=== PATIENT | female | born 1985 | race Hispanic/Latino ===

== ENCOUNTER 2021-01-15 12:28 | Emergency (ER) | payer BC ==
[2021-01-15 14:24] LABS: Urine Blood Negative (Negative); Urine Glucose Negative (Negative); Urine Protein Negative (Negative); Urine Specific Gravity 1.015 (1.005-1.030); Urine pH 7.5 (5.0-7.0)
--- NOTE | 2021-01-15 15:18 | RAD REPORT ---
EXAM DESCRIPTION: CT - Chest For Pe Angio - 01/15/2021 3:08 pm CLINICAL HISTORY: Chest pain COMPARISON: None. TECHNIQUE: Dynamically enhanced axial 3 mm thick images of the chest were obtained during administra tion of <100> mL Isovue 370 IV contrast. Coronal and oblique reconstruction images were generated and reviewed. Exam utilizes a protocol for optimal evaluation of pulmonary arterial tree. Maximum intensity projections 3D imaging was utilized All CT scans are performed using dose optimization technique as appropriate and may include automated exposure control or mA/KV adjustment according to patient size. FINDINGS: A pulmonary embolus is not seen. A thoracic aortic aneurysm is not noted. A pleural effusion is not seen. A pericardial effusion is not seen. A lung consolidation is not present. Bilateral breast implants IMPRESSION: Negative for a pulmonary embolism.
[2021-01-15 16:34] LABS: Absolute Lymphocytes (CBC) 2.4 K/uL (0.7-4.9); Basophils % 1.1 % (0-1.3); Hematocrit 41.7 % (36.0-45.0); Lymphocytes % 32.7 % (15.3-44.8); MPV 8.4 fL (7.6-11.3)
[2021-01-15] MEDS ORDERED: DIAZEPAM 10 MG/2 ML INJ SYRINGE ONE (16:47)
[2021-01-15 16:51] LABS: Potassium 4.4 mmol/L (3.5-5.1)
--- NOTE | 2021-01-15 17:30 | EDPHYS ---
Physician Documentation [facility] Name: Jenae Flores Age: 35 yrs Sex: Female : 1985 Arrival Date: 01/15/2021 Time: 12:31 Bed 26 Private MD: Randolph Price HPI: 01/15 14:14 This 35 yrs old Female presents to ER via Ambulatory with complaints of Chest jmm Muscle Pain-Inplant Issue. 14:14 The patient or guardian reports chest pain that is located primarily in the right jmm breast. Associated signs and symptoms: Pertinent positives: syncope. The chest pain is described as sharp. 35-year-old female with a history of hypothyroidism presents emerged part with complaints of right breast pain symptoms initially began approximately 3 months after a June 2019 breast augmentation. Symptoms have been ongoing. Patient states she always feels her right breast. Last night she developed what felt like a charley horse to her right breast the pain was so intense that she states she vomited and had a syncopal episode.. 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 - Social history:: Smoking status: Patient denies any tobacco usage or history of. ROS: 14:14 Constitutional: Negative for fever, chills, and weight loss, Cardiovascular: Negative jmm for chest pain, palpitations, and edema, Respiratory: Negative for shortness of breath, cough, wheezing, and pleuritic chest pain. 14:14 Cardiovascular: Positive for chest pain. 14:14 All other systems are negative. Exam: 14:14 Constitutional: This is a well developed, well nourished patient who is awake, alert, jmm and in no acute distress. Head/Face: atraumatic. Eyes: EOMI, no conjunctival erythema appreciated ENT: Moist Mucus Membranes Neck: Trachea midline, Supple 14:14 Cardiovascular: Regular rate and rhythm. No edema appreciated Respiratory: Normal respirations, no respiratory distress appreciated Abdomen/GI: Non distended, soft Back: Normal ROM Skin: General appearance color normal MS/ Extremity: Moves all extremities, no obvious deformities appreciated, no edema noted to the lower extremities Neuro: Awake and alert, normal gait Psych: Behavior is normal, Mood is normal, Patient is cooperative and pleasant 14:14 Chest/axilla: Breasts: tenderness, that is moderate, of the right breast. Vital Signs: 13:22 BP 107 / 66; Pulse 82; Resp 20; Temp 98.2; Pulse Ox 100% ; Weight 69.94 kg; Height 5 kg ft. 1 in. (154.94 cm); Pain 9/10; 16:30 BP 112 / 77; Pulse 64; Resp 15; Pulse Ox 99% ; bp 13:22 Body Mass Index 29.14 (69.94 kg, 154.94 cm) kg MDM: 14:30 Patient medically screened. emiliana 17:22 Data reviewed: vital signs, nurses notes. Counseling: I had a detailed discussion with alessandro the patient and/or guardian regarding: the historical points, exam findings, and any diagnostic results supporting the discharge/admit diagnosis, the need for outpatient follow up, to return to the emergency department if symptoms worsen or persist or if there are any questions or concerns that arise at home. 17:26 ED course: Patient is alert nontoxic in appearance in the ED. Patient symptoms are [facility] alleviated with IV evaluation. Patient is advised to follow-up with her plastics. Patient is otherwise given strict return precautions. Patient understood and agrees with plan of care.. 17:29 ED course: NARX SCORE = 270. [facility] 01/15 14:24 Order name: Urine Dipstick-Ancillary [facility] 01/15 14:26 Order name: Urine --Ancillary (enter results) 01/15 15:41 Order name: CBC with Diff; Complete Time: 17:11 [facility] 01/15 15:41 Order name: BMP; Complete Time: 17:11 [facility] 01/15 14:13 Order name: CT Chest For PE Angio; Complete Time: 15:20 [facility] 01/15 15:41 Order name: EKG - Nurse/Tech; Complete Time: 16:34 [facility] Administered Medications: 16:15 Drug: Valium (diazepam) 5 mg Route: IVP; Site: right antecubital; bp 16:59 Follow up: Response: Anxiety decreased bp Disposition: 01/16 07:00 Co-signature as Attending Physician, Randolph Rodriguez MD I agree with the assessment and emiliana plan of care. Disposition Summary: 01/15/21 17:29 Discharge Ordered Location: Home jmm Condition: Stable jmm Diagnosis - Other muscle spasm jmm Followup: jmm - With: Private Physician - When: 2 - 3 days - Reason: Recheck today's complaints, Continuance of care, Re-evaluation by your physician Discharge Instructions: - Discharge Summary Sheet jmm - Spasticity jmm Forms: - Medication Reconciliation Form jmm - Thank You Letter jmm - Antibiotic Education jmm - Prescription Opioid Use jmm - Work release form eb Prescriptions: - Valium 5 mg Oral Tablet - take 1 tablet by ORAL route every 8 hours As needed; 20 tablet; Refills: 0, jmm Product Selection Permitted Signatures: Dispatcher [employer] EDRandolph Agustin MD MD cha Mickail, Joel, PA PA Nate Mann, RN RN Jesusita Dumont, PARAMJIT RN kg Corrections: (The following items were deleted from the chart) 01/15 13:30 13:27 Allergies: Aspirin; kg kg 13:30 13:27 PSHx: Operative procedure on knee; kg kg 14:19 14:12 Thorax W/ Con+CT.RAD.BRZ ordered. EDCT EDMS
--- NOTE | 2021-01-15 17:30 | ER ---
Nurse's Notes [facility] Name: Jenae Flores Age: 35 yrs Sex: Female : 1985 Arrival Date: 01/15/2021 Time: 12:31 Bed 26 Private MD: Diagnosis: Other muscle spasm Presentation: 01/15 13:22 Chief complaint: Patient states: Pt stated that she was woken up in the middle of the kg night with pain to the right breast. She states she has breast implants under the muscle in 06/26/2019 and has had problems with the right breast every since. Pt denies picking up anything or doing anything to cause the pain. She stated the pain was so bad she passed out. No obvious bruising or swelling noted. Coronavirus screen: Client denies travel out of the [place] in the last 14 days. At this time, unable to obtain information related to travel outside the [place] At this time, the client does not indicate any symptoms associated with coronavirus-19. Ebola Screen: Patient negative for fever greater than or equal to 101.5 degrees Fahrenheit, and additional compatible Ebola Virus Disease symptoms Patient denies exposure to infectious person. Patient denies travel to an Ebola-affected area in the 21 days before illness onset. Initial Sepsis Screen: Does the patient meet any 2 criteria? No. Patient's initial sepsis screen is negative. Does the patient have a suspected source of infection? No. Patient's initial sepsis screen is negative. Risk Assessment: Do you want to hurt yourself or someone else? Patient reports no desire to harm self or others. Onset of symptoms was January 14, 2021. 13:22 Method Of Arrival: Ambulatory kg 13:22 Acuity: ALONSO 4 kg Triage Assessment: 13:27 General: Appears in no apparent distress. Behavior is calm, cooperative, appropriate kg for age, quiet. Pain: Complains of pain in right breast Pain does not radiate. Pain currently is 9 out of 10 on a pain scale. at worst was 10 out of 10 on a pain scale. level that patient reports is acceptable is 5 out of 10 on a pain scale. Quality of pain is described as "tearing" "It feels like I tore something from the inside of my boob". 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 - Social history:: Smoking status: Patient denies any tobacco usage or history of. Screenin:33 Abuse screen: Denies threats or abuse. Denies injuries from another. Nutritional kg screening: No deficits noted. Tuberculosis screening: No symptoms or risk factors identified. Fall Risk None identified. Assessment: 13:30 General: SEE TRIAGE NOTE. bp 14:30 Reassessment: No changes from previously documented assessment. Patient and/or family bp updated on plan of care and expected duration. Pain level reassessed. PT TO CT. 16:00 Reassessment: No changes from previously documented assessment. Patient and/or family bp updated on plan of care and expected duration. Pain level reassessed. 17:43 Reassessment: PT D/C HOME AMBULATORY, DX WITH MUSCLE SPASM. bp Vital Signs: 13:22 BP 107 / 66; Pulse 82; Resp 20; Temp 98.2; Pulse Ox 100% ; Weight 69.94 kg; Height 5 kg ft. 1 in. (154.94 cm); Pain 9/10; 16:30 BP 112 / 77; Pulse 64; Resp 15; Pulse Ox 99% ; bp 13:22 Body Mass Index 29.14 (69.94 kg, 154.94 cm) kg ED Course: 12:31 Patient arrived in ED. ds1 13:27 Triage completed. kg 13:27 Arm band placed on left wrist. kg 13:33 Patient has correct armband on for positive identification. kg 14:13 Tucker Miller PA is PHCP. jmm 14:13 Randolph Rodriguez MD is Attending Physician. jmm 14:20 Nate Araujo, PARAMJIT is Primary Nurse. bp 14:56 Inserted saline lock: 20 gauge in left forearm, using aseptic technique. bp 15:08 CT Chest For PE Angio In Process Unspecified. EDMS 16:00 No provider procedures requiring assistance completed. IV discontinued, intact, bp bleeding controlled, No redness/swelling at site. Pressure dressing applied. 16:34 Urine --Ancillary (enter results) Sent. bp Administered Medications: 16:15 Drug: Valium (diazepam) 5 mg Route: IVP; Site: right antecubital; bp 16:59 Follow up: Response: Anxiety decreased bp Outcome: 16:00 Discharged to home bp 16:00 Condition: stable 16:00 Discharge instructions given to patient, Instructed on discharge instructions, follow up and referral plans. medication usage, Demonstrated understanding of instructions, follow-up care, medications, Prescriptions given X 1. 17:29 Discharge ordered by MD. francois 17:52 Patient left the ED. iw Signatures: Dispatcher [employer] EDMS Tucker Miller PA PA jmm Sanford, Demi ds1 Veronique Wilson, PARAMJIT RN iw Nate Araujo RN RN bp Graham, Kristen, PARAMJIT YUSUF kg Corrections: (The following items were deleted from the chart) 13:30 13:27 Allergies: Aspirin; kg kg 13:30 13:27 PSHx: Operative procedure on knee; kg kg
[2021-01-15 18:01] VITALS: TEMP 98.2
[2021-01-15 18:03] VITALS: BP 112/77; O2SAT 99
--- NOTE | 2021-01-18 12:42 | EKG ---
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
== END 2021-01-15 17:52 | disposition home or self-care (01) ==
LOC: ER 12:28
DX: M62.838 Other muscle spasm (principal); E03.9 Hypothyroidism, unspecified; Z98.82 Breast implant status; Z88.5 Allergy status to narcotic agent
CPT/HCPCS: 93005; 85025; 80048; 36415; 81003; 71275; 96374; 99284; Q9967; J3360

== ENCOUNTER 2021-11-25 16:50 | Emergency (ER) | payer BC ==
--- NOTE | 2021-11-25 17:40 | RAD REPORT ---
EXAM DESCRIPTION: CT - CTFB CLINICAL HISTORY: Facial trauma, blunt COMPARISON: No comparisons TECHNIQUE: Axial 2 mm thick images of the face were obtained with sagittal and coronal reconstructio n images. All CT scans are performed using dose optimization technique as appropriate and may include automated exposure control or mA/KV adjustment according to patient size. FINDINGS: No acute facial bone fracture is seen.The mandible is intact. The globes and orbital contents are grossly unremarkable.The paranasal sinuses and mastoids are clear . IMPRESSION: Negative for facial bone fracture.
--- NOTE | 2021-11-25 17:45 | EDPHYS ---
Physician Documentation [facility] Name: Jenae Flores Age: 35 yrs Sex: Female : 1985 Arrival Date: 11/25/2021 Time: 16:53 Bed Waiting Private MD: ED Physician Randolph Rodriguez HPI: 11/25 17:04 This 35 yrs old Female presents to ER via Unassigned with complaints of Facial jmm Injury, Facial Swelling. 17:04 The patient or guardian reports injury, pain. Onset: The symptoms/episode jmm began/occurred acutely, just prior to arrival. Associated signs and symptoms: Loss of consciousness: This patient did not experience any loss of consciousness. This is a 35 year old female with no chronic meidcal conditions that presents to the ED with ocmplaints of right sided jaw pain. Patient states she was hit by a boogie board on the left side and now has pain at the right TMJ. Pain is elicited on biting. Denies LOC, vomiting, neck pain. . 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 - Social history:: Smoking status: Patient denies any tobacco usage or history of. ROS: 17:04 Constitutional: Negative for fever, chills, and weight loss. jmm 17:04 ENT: Positive for jaw pain. 17:04 All other systems are negative. Exam: 17:04 Constitutional: This is a well developed, well nourished patient who is awake, alert, jmm and in no acute distress. Head/Face: atraumatic. Eyes: EOMI, no conjunctival erythema appreciated 17:04 Neck: Trachea midline, Supple Chest/axilla: Normal chest wall appearance and motion. Cardiovascular: Regular rate and rhythm. No edema appreciated Respiratory: Normal respirations, no respiratory distress appreciated Abdomen/GI: Non distended, soft Back: Normal ROM Skin: General appearance color normal MS/ Extremity: Moves all extremities, no obvious deformities appreciated, no edema noted to the lower extremities Neuro: Awake and alert Psych: Behavior is normal, Mood is normal, Patient is cooperative and pleasant 17:04 ENT: mild right tmj pain on palpation. no obvioius deformity. . Vital Signs: 17:41 BP 134 / 85; Pulse 66; Resp 16; Temp 98.1(TE); Pulse Ox 100% ; Weight 68.95 kg; Height vg1 5 ft. 1 in. (154.94 cm); Pain 6/10; 17:41 Body Mass Index 28.72 (68.95 kg, 154.94 cm) vg1 MDM: 17:04 Patient medically screened. [facility] 17:44 Data reviewed: vital signs, nurses notes. Counseling: I had a detailed discussion with [facility] the patient and/or guardian regarding: the historical points, exam findings, and any diagnostic results supporting the discharge/admit diagnosis, radiology results, the need for outpatient follow up, to return to the emergency department if symptoms worsen or persist or if there are any questions or concerns that arise at home. [id number] 17:04 Order name: CT Facial Bones W/O Con; Complete Time: 17:41 [facility] Administered Medications: No medications were administered Disposition Summary: 11/25/21 17:45 Discharge Ordered Location: Home [facility] Condition: Stable [facility] Diagnosis - Sprain of jaw, right side, initial encounter [facility] Followup: [facility] - With: Jumana Zavala MD - When: 2 - 3 days - Reason: Recheck today's complaints, Continuance of care, Re-evaluation by your physician Followup: [facility] - With: Josafat Torres DDS - When: 2 - 3 days - Reason: Recheck today's complaints, Continuance of care, Re-evaluation by your physician Discharge Instructions: - Discharge Summary Sheet [facility] - Jaw Contusion [facility] - Jaw Range of Motion Exercises [facility] Forms: - Medication Reconciliation Form [facility] - Thank You Letter [facility] - Antibiotic Education [facility] - Prescription Opioid Use [facility] Prescriptions: - Diclofenac Sodium 75 mg Oral Tablet Sustained Release - take 1 tablet by ORAL route 2 times per day; 30 tablet; Refills: 0, Product [facility] Selection Permitted - Valium 5 mg Oral Tablet - take 1 tablet by ORAL route every 8 hours As needed; 20 tablet; Refills: 0, [facility] Product Selection Permitted Signatures: Dispatcher [employer] Tucker Osorio PA PA jmm Garcia, Victoria, RN RN vg1 Corrections: (The following items were deleted from the chart) 17:47 17:45 Home Meds: Synthroid 75 mcg Oral tab; vg1 vg1
--- NOTE | 2021-11-25 17:51 | ER ---
Nurse's Notes [facility] Name: Jenae Flores Age: 35 yrs Sex: Female : 1985 Arrival Date: 11/25/2021 Time: 16:53 Bed Waiting Private MD: Diagnosis: Sprain of jaw, right side, initial encounter Presentation: 11/25 17:41 Chief complaint: Patient states: Pt was hit on the Left side of the jaw with a boogie vg1 board but states Right side of jaw pain and right ear pain. Denies headache, dizziness, blurred vision, or NV. Coronavirus screen: Vaccine status: Patient reports being unvaccinated. Client denies travel out of the [place] in the last 14 days. Ebola Screen: Patient denies exposure to infectious person. Patient denies travel to an Ebola-affected area in the 21 days before illness onset. Initial Sepsis Screen: Does the patient meet any 2 criteria? No. Patient's initial sepsis screen is negative. Does the patient have a suspected source of infection? No. Patient's initial sepsis screen is negative. Risk Assessment: Do you want to hurt yourself or someone else? Patient reports no desire to harm self or others. Onset of symptoms was November 25, 2021. 17:41 Method Of Arrival: Ambulatory vg1 17:41 Acuity: ALONSO 4 vg1 Triage Assessment: 17:45 General: Appears uncomfortable, Behavior is calm, cooperative. Pain: Complains of pain vg1 in Right side of jaw and right side of ear Pain currently is 6 out of 10 on a pain scale. 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 - Social history:: Smoking status: Patient denies any tobacco usage or history of. Screenin:49 Abuse screen: Denies threats or abuse. Nutritional screening: No deficits noted. vg1 Tuberculosis screening: No symptoms or risk factors identified. Fall Risk None identified. Vital Signs: 17:41 BP 134 / 85; Pulse 66; Resp 16; Temp 98.1(TE); Pulse Ox 100% ; Weight 68.95 kg; Height vg1 5 ft. 1 in. (154.94 cm); Pain 6/10; 17:41 Body Mass Index 28.72 (68.95 kg, 154.94 cm) vg1 ED Course: 16:53 Patient arrived in ED. jj6 17:01 Tucker Miller PA is PHCP. [facility] 17:01 Randolph Rodriguez MD is Attending Physician. [facility] 17:25 CT Facial Bones W/O Con In Process Unspecified. EDAK 17:44 Jumana Zavala MD is Referral Physician. jm 17:44 Josafat Torres DDS is Referral Physician. [facility] 17:45 Triage completed. vg1 17:45 Arm band placed on. vg1 17:49 Patient has correct armband on for positive identification. vg1 17:49 No provider procedures requiring assistance completed. Patient did not have IV access vg1 during this emergency room visit. Administered Medications: No medications were administered Medication: 17:50 VIS not applicable for this client. vg1 Outcome: 17:45 Discharge ordered by MD. [facility] 17:49 Discharged to home ambulatory. vg1 17:49 Condition: good 17:49 Discharge instructions given to patient, Instructed on discharge instructions, follow up and referral plans. medication usage, Demonstrated understanding of instructions, follow-up care, medications, Prescriptions given X 2. 17:51 Patient left the ED. vg1 Signatures: Dispatcher [employer] [facility] Tucker Miller PA PA jmm Garcia, Victoria, RN RN vg1 Ev Rascon [email or web address] Corrections: (The following items were deleted from the chart) 17:47 17:45 Home Meds: Synthroid 75 mcg Oral tab; vg1 vg1
[2021-11-25 17:57] VITALS: BP 134/85; TEMP 98.1; O2SAT 100
== END 2021-11-25 17:51 | disposition home or self-care (01) ==
LOC: ER 16:50
DX: S03.41XA Sprain of jaw, right side, initial encounter (principal); Z98.82 Breast implant status; Z88.5 Allergy status to narcotic agent
CPT/HCPCS: 70486; 76377; 99283